=== PATIENT | male | born 1975 | race Caucasian/White ===

== ENCOUNTER 2016-10-08 11:22 | Day surgery (SDC) | payer OTHER ==
[~2016-10-08] VITALS: Ht 182.9 cm; Wt 129.5 kg
[~2016-10-08 11:22] MED LIST: ACETAMINOPHEN-1 EAC1 PO; CLINDAMYCIN HC300 MG PO; CONZIP200 MG PO; MEN'S MULTIVI200 MCG PO; METHOCARBAMOL500 MG PO; NABUMETONE750 MG PO; NOHOMEMEDS; RELAFEN750 MG PO; TRAMADOL HCL50 MG PO; ULTRAM50 MG PO; ZESTORETIC 20-1 EAC1 NG; ZOLOFT100 MG PO
[2016-10-08] MEDS ORDERED: VALIUM5 MG PO (11:49)
== END 2016-10-08 13:18 | disposition home or self-care (01) ==
LOC: PAIN 11:22 → SDC 12:00 → PAIN 12:00
DX: M47.26 Other spondylosis with radiculopathy, lumbar region (principal); M51.16 Intervertebral disc disorders with radiculopathy, lumbar region; J45.909 Unspecified asthma, uncomplicated; I10 Essential (primary) hypertension; M54.5 Low back pain; E66.01 Morbid (severe) obesity due to excess calories; Z68.39 Body mass index [BMI] 39.0-39.9, adult; M79.1 Myalgia; F41.8 Other specified anxiety disorders; K76.0 Fatty (change of) liver, not elsewhere classified; F17.210 Nicotine dependence, cigarettes, uncomplicated
CPT/HCPCS: J1100; J2250; J3010

== ENCOUNTER 2016-11-13 09:42 | Day surgery (SDC) | payer OTHER ==
[~2016-11-13] VITALS: Ht 182.9 cm; Wt 129.5 kg
[~2016-11-13 09:42] MED LIST changes: +VALIUM5 MG PO
[2016-11-13 11:21] LABS: ANION GAP 8 MEQ/L (2-14); CHLORIDE 108 MEQ/L (99-109); POTASSIUM 3.9 MEQ/L (3.7-5.4); SAMPLE HEMOLYSIS CHECK 0; SAMPLE ICTERIC CHECK 0; SAMPLE LIPEMIA CHECK 0; SODIUM 139 MEQ/L (136-147)
[2016-11-13 11:27] LABS: GFR ESTIMATE (CALCULATED) > 59 mL/min/; GLUCOSE 89 mg/dL (70-99); UREA NITROGEN (BUN) 12 mg/dL (9-23)
== END 2016-11-13 11:28 | disposition home or self-care (01) ==
LOC: PAIN 09:42 → SDC 11:00 → PAIN 11:00
PROVIDERS: Anesthesiology Pain Medicine
DX: M47.26 Other spondylosis with radiculopathy, lumbar region (principal); M51.16 Intervertebral disc disorders with radiculopathy, lumbar region; M79.1 Myalgia; I10 Essential (primary) hypertension; E66.01 Morbid (severe) obesity due to excess calories; F41.9 Anxiety disorder, unspecified; E78.5 Hyperlipidemia, unspecified; J45.909 Unspecified asthma, uncomplicated; Z79.891 Long term (current) use of opiate analgesic; F17.210 Nicotine dependence, cigarettes, uncomplicated; Z68.38 Body mass index [BMI] 38.0-38.9, adult
CPT/HCPCS: 80048; J1100; J2250; J3010

== ENCOUNTER 2017-09-26 10:25 | Day surgery (SDC) | payer OTHER ==
[~2017-09-26] VITALS: Ht 182.9 cm; Wt 133.8 kg
[~2017-09-26 10:25] MED LIST changes: +ROBAXIN500 MG PO
[2017-09-26] MEDS ORDERED: VENLAFAXINE HCL75 M3 PO (10:43)
== END 2017-09-26 11:35 | disposition home or self-care (01) ==
LOC: PAIN 10:25 → SDC 11:00 → PAIN 11:00
DX: M47.816 Spondylosis without myelopathy or radiculopathy, lumbar region (principal); M51.9 Unspecified thoracic, thoracolumbar and lumbosacral intervertebral disc disorder; F17.200 Nicotine dependence, unspecified, uncomplicated; E66.01 Morbid (severe) obesity due to excess calories; Z68.41 Body mass index [BMI] 40.0-44.9, adult; M54.16 Radiculopathy, lumbar region; F41.8 Other specified anxiety disorders; I10 Essential (primary) hypertension; E78.5 Hyperlipidemia, unspecified
CPT/HCPCS: J1030; J2250; S0020

== ENCOUNTER 2017-10-03 10:28 | Day surgery (SDC) | payer OTHER ==
[~2017-10-03] VITALS: Ht 182.9 cm; Wt 133.8 kg
[~2017-10-03 10:28] MED LIST changes: +VENLAFAXINE HCL75 M3 PO
== END 2017-10-03 12:52 | disposition home or self-care (01) ==
LOC: PAIN 10:28 → SDC 11:00 → PAIN 11:00
DX: M47.816 Spondylosis without myelopathy or radiculopathy, lumbar region (principal); M51.16 Intervertebral disc disorders with radiculopathy, lumbar region; M79.1 Myalgia; M47.814 Spondylosis without myelopathy or radiculopathy, thoracic region; I10 Essential (primary) hypertension; E78.5 Hyperlipidemia, unspecified; E66.01 Morbid (severe) obesity due to excess calories; Z68.39 Body mass index [BMI] 39.0-39.9, adult; Z79.891 Long term (current) use of opiate analgesic; F17.200 Nicotine dependence, unspecified, uncomplicated; Z88.1 Allergy status to other antibiotic agents; Z91.030 Bee allergy status
CPT/HCPCS: 93005; J1030; J2250; S0020

== ENCOUNTER 2017-11-12 07:23 | Day surgery (SDC) | payer OTHER ==
[~2017-11-12] VITALS: Ht 182.9 cm; Wt 134.0 kg
== END 2017-11-12 09:40 | disposition home or self-care (01) ==
LOC: PAIN 07:23 → SDC 08:00 → PAIN 08:00
DX: M47.816 Spondylosis without myelopathy or radiculopathy, lumbar region (principal); M51.26 Other intervertebral disc displacement, lumbar region; M79.1 Myalgia; M47.814 Spondylosis without myelopathy or radiculopathy, thoracic region; F41.8 Other specified anxiety disorders; I10 Essential (primary) hypertension; E78.5 Hyperlipidemia, unspecified; F17.200 Nicotine dependence, unspecified, uncomplicated; Z79.891 Long term (current) use of opiate analgesic; Z88.1 Allergy status to other antibiotic agents; Z91.030 Bee allergy status; Z91.09 Other allergy status, other than to drugs and biological substances
CPT/HCPCS: J1030; J2250; J3010; S0020

== ENCOUNTER 2017-11-19 07:24 | Day surgery (SDC) | payer OTHER ==
[~2017-11-19] VITALS: Ht 182.9 cm; Wt 133.8 kg
== END 2017-11-19 09:26 | disposition home or self-care (01) ==
LOC: PAIN 07:24 → SDC 08:00 → PAIN 09:26
DX: M47.816 Spondylosis without myelopathy or radiculopathy, lumbar region (principal); M54.16 Radiculopathy, lumbar region; M79.1 Myalgia; M47.814 Spondylosis without myelopathy or radiculopathy, thoracic region; F41.8 Other specified anxiety disorders; I10 Essential (primary) hypertension; E78.5 Hyperlipidemia, unspecified; F17.200 Nicotine dependence, unspecified, uncomplicated; Z79.891 Long term (current) use of opiate analgesic
CPT/HCPCS: J1030; J2250; J3010; S0020